=== PATIENT | female | born 1970 | race African-American/Black ===

== ENCOUNTER 2023-03-19 14:30 | Emergency (ER) | payer SELFPAY ==
[2023-03-19] VITALS (7 sets, daily range): BP systolic 102–144; BP diastolic 68–99; PULSE 64–76; RESP 15–20; TEMP 36.2; O2SAT 98–99
--- NOTE | ~2023-03-19 | XR_ITS ---
EXAMINATION: XR chest 2V Exam Date/Time: 03/19/2023 17:05 CDT HISTORY: near syncope WITH MID ANTERIOR CHEST PAIN X 1 DAY Comparison: None. RESULT: Lines, tubes, and devices: None. Lungs and pleura: Slightly decreased volumes with mild crowding, otherwise clear. Cardiomediastinal silhouette: Unremarkable. Other: No acute osseous or upper abdominal finding. IMPRESSION: No acute cardiopulmonary process. Reviewed, dictated and finalized at location K.
--- NOTE | 2023-03-19 14:41 | ECG_ITS ---
Measurements Intervals [place] Rate: 66 P: 45 WI: 154 QRS: -12 QRSD: 86 T: -12 QT: 388 QTc: 409 Interpretive Statements SINUS RHYTHM WITH SINUS ARRHYTHMIA DELAYED PRECORDIAL R/S TRANSITION LOW QRS VOLTAGE IN PRECORDIAL LEADS VOLTAGE CRITERIA FOR LVH BORDERLINE ST-T WAVE ABNORMALITY- ANTEROLAT/INF LEADS BASELINE ARTIFACT- I, III, AVL BORDERLINE ECG NO PREVIOUS ECG AVAILABLE FOR COMPARISON Electronically Signed On 03-19-2023 14:51:23 CDT by Solo Zurita D.O.
[2023-03-19 15:21] LABS: Basophils Percent Auto 0.4 % (0.2-1.2); Eosinophils Absolute Auto 0.1 K/mm3 (0-0.3); Eosinophils Percent Auto 1.9 % (0-4.4); Hematocrit 36.9 % (37.0-47.0); Hemoglobin 11.9 g/dL (12.0-15.0); Immature Granulocyte Absolute 0.01 K/mm3 (0.00-0.031); Immature Granulocyte Percent A 0.2 % (0-0.5); Lymphocytes Absolute Auto 2.08 K/mm3 (0.9-3.2); Lymphocytes Percent Auto 44.3 % (18.3-44.2); Mean Corpuscular HGB Conc 32.2 g/dl (32-36); Mean Corpuscular Hemoglobin 27.2 pg (26-34); Mean Corpuscular Volume 84.2 fl (80-100); Monocytes Absolute Auto 0.4 K/mm3 (0.1-0.6); Monocytes Percent Auto 7.9 % (2.6-8.5); Neutrophils Absolute Auto 2.1 K/mm3 (1.3-6.7); Neutrophils Percent Auto 45.3 % (45.5-73.1); Platelet Count Result 268 k/mm3 (150-375); Red Blood Count 4.38 M/mm3 (4.2-5.4); Red Cell Distribution Width 12.9 % (11.5-14.5); White Blood Count 4.7 K/mm3 (4.5-10.0)
[2023-03-19 15:36] LABS: Alanine Aminotransferase 26 U/L (6-35); Albumin Level 4.1 g/dL (3.5-5.1); Alkaline Phosphatase 49 U/L (38-126); Anion Gap 4 mmol/L (8-16); Aspartate Amino Transferase 28 U/L (14-36); Bilirubin,Total 0.4 mg/dL (0.2-1.3); Blood Urea Nitrogen 17 mg/dL (7-17); Calcium 8.6 mg/dL (8.4-10.2); Carbon Dioxide 29 mmol/L (22-30); Chloride 105 mmol/L (98-107); Estimated CRCL calculation 102 ml/min; Estimated Glomerular Filt Rate > 60; Glucose 108 mg/dL (65-110); Potassium 3.5 mmol/L (3.4-5.0); Sodium 138 mmol/L (137-145)
--- NOTE | 2023-03-19 17:27 | ED.GENADULT ---
HPI - General Adult General Chief complaint: Syncope Stated complaint: syncope Time Seen by Provider: 03/19/23 16:38 History of Present Illness HPI narrative: Patient is a 52-year-old female who presents ER with near syncope. 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 She reports she began getting dizzy when she would stand back up. This provokes some anxiousness. She had a couple episodes where she felt like her vision was changing and that she might lose consciousness. No chest pain or chest pressure. No shortness of breath. Feels improved at this time. Reports she had eaten a small amount for breakfast but had no other food for the rest of the day. Symptoms initially began around 12:30 PM. No chest pain or chest pressure. Related Data Allergies Allergy/AdvReac Type Severity Reaction Status Date / Time No Known Allergies Allergy Verified 03/19/23 14:31 Review of Systems Review of Systems: All systems reviewed & are unremarkable except as noted in HPI and below Constitutional: Constitutional: Denies chills, Denies fatigue and Denies fever(s) ENT: Reports dizziness and Denies nasal congestion Cardiovascular: Cardiovascular: Denies chest pain, Denies rapid heart rate and Denies radiating jaw, neck or arm pain Respiratory: Respiratory: Denies cough, Denies dyspnea and Denies wheezing Gastrointestinal: Gastrointestinal: Denies abdominal pain, Denies nausea and Denies vomiting Neurologic: Reports dizziness, Denies syncope, Denies headache(s), Denies focal weakness and Denies numbness Psychiatric: Psychiatric: Reports anxiety PMFSH Past Medical History Medical History (Updated 03/19/23 @ 17:30 by Vicente Stephens MD) Healthy female adult Surgical History Surgical History (Updated 03/19/23 @ 17:30 by Vicente Stephens MD) No history of previous surgery Exam Narrative: GENERAL: Well-appearing, well-nourished, and in no acute distress. HEAD: Normocephalic, atraumatic. EYES: PERRL and EOMI. ENT: Mucous membranes moist. CHEST: Clear to auscultation. No respiratory distress. HEART: Regular rate and rhythm. Normal peripheral pulses. ABDOMEN: Soft, nontender, nondistended. EXTREMITIES: Normal range of motion. No edema. SKIN: Warm, dry, no rash. NEURO: Alert and oriented x3. PSYCH: Normal mood and affect. Course Course Emergency Course: Patient resting comfortably. Hydrated. No orthostasis. Patient feels mildly improved, she still feels a little bit of lightheadedness. I have offered to hydrate her with a second liter of fluid but she has declined. She preferred to be discharged home. No abnormal labs or intervention. Will discharge. Vital Signs Vital signs: Vital Signs Temperature 97.1 F L 03/19/23 14:38 Pulse Rate 67 03/19/23 14:38 Respiratory Rate 20 03/19/23 14:38 Blood Pressure 139/99 H 03/19/23 14:38 Pulse Oximetry 98 03/19/23 14:38 Oxygen Delivery Room Air 03/19/23 14:38 Temperature 97.1 F L 03/19/23 14:38 Pulse Rate 69 03/19/23 19:02 Respiratory Rate 16 03/19/23 19:02 Blood Pressure 144/99 H 03/19/23 19:01 Pulse Oximetry 99 03/19/23 19:02 Oxygen Delivery Room Air 03/19/23 14:38 Medical Decision Making Vital Signs Vital Signs: Vital Signs Temperature 97.1 F L 03/19/23 14:38 Pulse Rate 67 03/19/23 14:38 Respiratory Rate 20 03/19/23 14:38 Blood Pressure 139/99 H 03/19/23 14:38 Pulse Oximetry 98 03/19/23 14:38 Oxygen Delivery Room Air 03/19/23 14:38 Temperature 97.1 F L 03/19/23 14:38 Pulse Rate 69 03/19/23 19:02 Respiratory Rate 16 03/19/23 19:02 Blood Pressure 144/99 H 03/19/23 19:01 Pulse Oximetry 99 03/19/23 19:02 Oxygen Delivery Room Air 03/19/23 14:38 Lab Data 03/19/23 14:53 03/19/23 14:53 Labs: Lab Results 03/19/23 03/19/23 Range/Uni
[2023-03-19] MEDS: SODIUM CHLORIDE 0.9% IV 1,000 ML 999 ML IV CONT (17:34)
[2023-03-19 18:25] LABS: Appearance Urine Clear (Clear); Bilirubin Urine Negative (Negative); Blood Urine Negative (Negative); Color Urine Yellow (Yellow); Glucose Urine UA Negative (Negative); Ketones Urine Negative (Negative); Leukocyte Esterase Ur Negative LEU/UL (Negative); Nitrate Urine Negative (Negative); Protein Urine Negative (Negative); Specific Grav Ur 1.009 (1.001-1.035); Urobilinogen Urine 0.2 mg/dL (<2.0); pH Urine 5.5 (5.0-9.0)
[2023-03-19 18:27] LABS: Add Urine Microscopic? NO
== END 2023-03-19 20:10 | disposition home or self-care (01) ==
PROVIDERS: Emergency Provider Emergency Medicine
DX: R55 Syncope and collapse (principal); R94.31 Abnormal electrocardiogram [ECG] [EKG]
CPT/HCPCS: 36415; 71046; 80053; 81003; 81025; 85025; 93005; 96360; 96361; 99284; J7030